=== PATIENT | male | born 1955 | race Caucasian/White ===

== ENCOUNTER → 2018-08-09 | Outpatient (CLI) | payer OTHER ==
[~2018-08-09] MED LIST: ACET-1600 PO; AMLO-150 PO; CETI10TA24 PO; GABA100C PO; HYDR25TA11 PO; LOSA100T14 PO; MAGN400T7 PO; NAPR250T6 PO; OMEP20TA62 PO; PRAV40TA2 PO; VENL75TA PO
[2018-08-09 14:15] LABS: HCT (SEDRATE) 46.1 % (39.2-51.8)
[2018-08-09 14:17] LABS: BASOPHILS # (AUTO) 0.02 x10^3/uL (0-0.1); BASOPHILS % (AUTO) 0 % (0-1); EOSINOPHILS # (AUTO) 0.42 x10^3/uL (0-0.4); EOSINOPHILS % (AUTO) 5 % (1-7); LYMPHOCYTES # (AUTO) 1.99 x10^3/uL (1-3.4); LYMPHOCYTES % (AUTO) 22 % (22-44); MD NO; MEAN CORPUSCULAR HGB CONC 33.6 g/dL (33.2-36.2); MEAN CORPUSCULAR VOLUME 86.3 fL (81-97); MEAN PLATELET VOLUME 7.4 fL (7.4-10.4); MONOCYTES # (AUTO) 0.67 x10^3/uL (0.2-0.8); MONOCYTES % (AUTO) 7 % (2-9); NEUTROPHILS # (AUTO) 6.12 x10^3/uL (1.8-6.8); NEUTROPHILS % (AUTO) 66 % (42-75); PLATELET COUNT 301 x10^3/uL (130-400); RED BLOOD COUNT 5.31 x10^6/uL (4.38-5.82); RED CELL DISTRIBUTION WIDTH 13.8 % (9.4-14.8)
[2018-08-09 14:18] LABS: MICROSCOPIC AUTO
[2018-08-09 14:19] LABS: CULTURE INDICATED? YES
[2018-08-09 14:25] LABS: INTERNATIONAL NORMALIZED RATIO 0.98 (0.93-1.1); PROTHROMBIN TIME 10.3 Seconds (9.6-11.5)
[2018-08-09 14:27] LABS: ALANINE AMINOTRANSFERASE 22 U/L (12-78); ANION GAP 4 mmol/L (5-15); CHLORIDE 107 mmol/L (98-107); CREATININE 1.12 mg/dL (0.7-1.3)
[2018-08-09 14:29] LABS: ALKALINE PHOSPHATASE 95 U/L (45-117); BILIRUBIN,TOTAL 0.4 mg/dL (0.2-1.0); TOTAL PROTEIN 7.4 g/dL (6.4-8.2)
== END | disposition home or self-care (01) ==
LOC: STAR 12:49
PROVIDERS: ATTEND Orthopaedic Surgery Orthopaedic Surgery of the Spine
DX: Z01.818 Encounter for other preprocedural examination (principal); M48.54XA Collapsed vertebra, not elsewhere classified, thoracic region, initial encounter for fracture
CPT/HCPCS: 36415; 71046; 80053; 80074; 81001; 85025; 85610; 85651; 85730; 87086; 87806; 93005; G0475

== ENCOUNTER 2018-08-27 05:54 | Day surgery (SDC) | payer OTHER ==
[~2018-08-27] VITALS: Ht 181.6 cm; Wt 95.8 kg
[2018-08-27 06:34] VITALS: BP 111/76
[2018-08-27] MEDS ORDERED: LACTATED RINGERS 1,000 ML IV SCH (06:34)
[2018-08-27] MEDS ORDERED: LIDOCAINE/PF 1%-EPI 1:200K, 30 ML ONE (06:54)
[2018-08-27] MEDS ORDERED: BUPIVACAINE/EPI 0.5% 1:200K ONE (06:55)
[2018-08-27] MEDS ORDERED: LABETALOL 5MG/ML, 20ML IV PRN (07:00)
[2018-08-27] MEDS ORDERED: FENTANYL PF 100 MCG/2ML IV PRN (07:00)
[2018-08-27] MEDS ORDERED: HYDROmorphone 2 MG/ML, 1ML IVPush PRN (07:00)
[2018-08-27] MEDS ORDERED: SCOPOLAMINE PATCH, 1.5MG PATCH.TD72 TD PRN (07:00)
[2018-08-27] MEDS ORDERED: MEPERIDINE/PF 25MG/0.5ML IVPush PRN (07:00)
[2018-08-27] MEDS ORDERED: EPHEDRINE 50 MG/ML, 1ML IM PRN (07:00)
[2018-08-27] MEDS ORDERED: LIDOCAINE-MPF 1%, 2ML INFIL ONE (07:00)
[2018-08-27] MEDS ORDERED: METOCLOPRAMIDE 5 MG/ML, 2ML IV PRN (07:00)
[2018-08-27] MEDS ORDERED: MORPHINE SULFATE 4 MG/ML, 1ML IVPush PRN (07:00)
[2018-08-27] MEDS ORDERED: EPHEDRINE 50 MG/ML, 1ML IVPush PRN (07:00)
[2018-08-27] MEDS ORDERED: hydrALAzine 20 MG/ML, 1ML IV PRN (07:00)
[2018-08-27] MEDS ORDERED: OXYcodone 5 MG/5 ML ORAL.SOL UDC PO PRN (07:00)
[2018-08-27] MEDS ORDERED: ONDANSETRON ODT 8 MG PO PRN (07:00)
[2018-08-27] MEDS ORDERED: DEXAMETHASONE 4 MG/ML, 1ML IV PRN (07:00)
[2018-08-27] MEDS ORDERED: ALBUTEROL/IPRATROPIUM 2.5MG/0.5MG, 3 ML NPPB PRN (07:00)
[2018-08-27] MEDS ORDERED: MIDAZOLAM 1 MG/ML, 2ML IV PRN (07:00)
[2018-08-27] MEDS ORDERED: HYDROcodone/APAP 7.5-325MG/15ML UDC PO PRN (07:00)
[2018-08-27] MEDS ORDERED: ONDANSETRON 2MG/ML, 2ML IV PRN (07:00)
[2018-08-27] MEDS ORDERED: MIDAZOLAM 1 MG/ML, 2ML ONE (07:14)
[2018-08-27] MEDS ORDERED: PROPOFOL 10 MG/ML, 20ML ONE (07:14)
[2018-08-27] MEDS ORDERED: LIDOCAINE 2% 100MG/5ML SYRINGE ONE (07:14)
[2018-08-27] MEDS ORDERED: FENTANYL PF 250 MCG/5ML ONE (07:14)
[2018-08-27] MEDS ORDERED: DEXAMETHASONE 4 MG/ML, 1ML ONE (07:14)
[2018-08-27] MEDS ORDERED: GLYCOPYRROLATE 0.2MG/1ML, 5ML ONE (07:14)
[2018-08-27] MEDS ORDERED: ROCURONIUM 10MG/ML,5ML ONE (07:14)
[2018-08-27] MEDS ORDERED: CEFAZOLIN 1,000 MG ONE (07:26)
[2018-08-27] MEDS ORDERED: LIDOCAINE-MPF 2% ,5ML ONE (07:32)
[2018-08-27] MEDS ORDERED: EPHEDRINE 50 MG/ML, 1ML ONE (08:33)
[2018-08-27] MEDS ORDERED: OXYcodone 5 MG/5 ML ORAL.SOL UDC ONE (09:00)
[2018-08-27] MEDS ORDERED: OMNIPAQUE 180 MG/ML, 20ML VIAL ONE (10:09)
== END 2018-08-27 13:50 | disposition home or self-care (01) ==
LOC: OUT 05:54
PROVIDERS: ATTEND Orthopaedic Surgery Orthopaedic Surgery of the Spine
DX: M80.88XA Other osteoporosis with current pathological fracture, vertebra(e), initial encounter for fracture (principal); J44.9 Chronic obstructive pulmonary disease, unspecified; I25.10 Atherosclerotic heart disease of native coronary artery without angina pectoris; I10 Essential (primary) hypertension; K21.9 Gastro-esophageal reflux disease without esophagitis; E78.5 Hyperlipidemia, unspecified; Z88.8 Allergy status to other drugs, medicaments and biological substances; Z98.890 Other specified postprocedural states
CPT/HCPCS: 22513; 72080; 88307; 88311; C1713; J0690; J1100; J2250; J2704; J3010; J3490; J7120; Q9965